=== PATIENT | male | born 1965 | race Caucasian/White ===

== ENCOUNTER → 2025-02-26 | Outpatient (CLI) | payer OTHER, SELFPAY ==
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
--- NOTE | 2025-02-26 08:03 | MRI_ITS ---
PROCEDURE: SPINE LUMBAR (ROUTINE) 02/26/2025 REASON FOR EXAM: PAIN TECHNIQUE: Multiplanar and multisequence images were obtained without IV contrast administration. COMPARISON: Radiographs on 01/08/2025. FINDINGS: Vertebrae: Moderate diffuse spondylosis. Moderate multilevel degenerative disc disease. Moderate chronic changes of Scheuermann's disease. Alignment: Mild levoscoliosis apex at L3. Conus Medullaris: The conus terminates at L1. T11-T12: Minimal diffuse disc bulge. The spinal canal is not narrowed. There is no evidence of neural foramina narrowing. T12-L1: Minimal diffuse disc bulge. The spinal canal is not narrowed. There is no evidence of neural foraminal narrowing. L1-2: Minimal diffuse disc bulge. The spinal canal is not narrowed. There is no evidence of neural foraminal narrowing. L2-3: Grade 1 anterolisthesis measuring 2.4 mm. Prominent Modic type 1 degenerative endplate changes with chronic Schmorl's node formation. Mild diffuse disc bulge. The spinal canal is not narrowed. Minimal bilateral neural foraminal narrowing. L3-4: Mild diffuse disc bulge. Bilateral facet joint arthropathy and ligamentum flavum hypertrophy. The spinal canal is not narrowed. Minimal bilateral neural foraminal narrowing. L4-5: Grade 1 anterolisthesis measuring 3.2 mm. Mild diffuse disc bulge. Superimposed broad-based right posterolateral disc protrusion measuring 2.2 mm. Mild bilateral facet joint arthropathy and ligamentum flavum hypertrophy. Minimal bilateral neural foraminal narrowing. L5-S1: Mild diffuse disc bulge. 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 This can be further evaluated by repeat exam with intravenous administration of gadolinium if clinically warranted. Bilateral facet joint arthropathy. No significant spinal canal or neural foraminal stenosis. Sacrum: Unremarkable. MRI/Spine Lumbar (Routine) IMPRESSION: Spondylosis. Degenerative disc disease. Reading [facility] [id number]
== END | disposition home or self-care (01) ==
PROVIDERS: PCP Internal Medicine Infectious Disease; Referring Provider Student in an Organized Health Care Education/Training Program; Visit Provider Student in an Organized Health Care Education/Training Program
DX: Z01.818 Encounter for other preprocedural examination (principal); M51.369 Other intervertebral disc degeneration, lumbar region without mention of lumbar back pain or lower extremity pain; M43.16 Spondylolisthesis, lumbar region
CPT/HCPCS: 70030; 72148